=== PATIENT | female | born 2005 | race Two or more races ===

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

== ENCOUNTER 2024-11-29 14:34 | Emergency (ER) | payer MEDICAID, OTHER ==
[~2024-11-29] VITALS: Ht 154.9 cm; Wt 56.8 kg
[~2024-11-29 14:34] MED LIST: ALBU18HF12 IH
[2024-11-29 15:14] LABS: APPEARANCE,URINE CLEAR (CLEAR); BILIRUBIN,URINE NEGATIVE (NEGATIVE); COLOR,URINE LIGHT YELLOW (YELLOW); GLUCOSE, URINE (UA) NEGATIVE (NEGATIVE); KETONES,URINE NEGATIVE (NEGATIVE); LEUKOCYTE ESTERASE ,URINE MODERATE (NEGATIVE); OCCULT BLOOD,URINE NEGATIVE (NEGATIVE); PROTEIN,URINE NEGATIVE (NEGATIVE); SPECIFIC GRAVITIY, URINE 1.016 (1.003-1.030); UROBILINOGEN,URINE <=1.0 mg/dL (<=1.0)
[2024-11-29 15:25] LABS: NITRATE,URINE POSITIVE (NEGATIVE)
[2024-11-29 15:26] LABS: RBC,URINE 0-2 /HPF (0-2); WBC,URINE 26-50 /HPF (0-5)
[2024-11-29 15:27] LABS: BACTERIA,URINE Many /HPF (None Seen); SQUAMOUS EPITHELIAL CELL,UR Few /LPF (None Seen)
[2024-11-29] MEDS ORDERED: CEPH-558 PO (16:14)
[2024-11-29 16:20] VITALS: BP 101/69; PULSE 62; RESP 18; TEMP 98.6; O2SAT 99
[2024-11-29] MEDS: CEPHALEXIN MONOHYDRATE 500 MG CAPSULE PO ONE (16:32)
== END 2024-11-29 16:37 | disposition home or self-care (01) ==
LOC: EMS 14:34
DX: O23.41 Unspecified infection of urinary tract in pregnancy, first trimester (principal); O99.511 Diseases of the respiratory system complicating pregnancy, first trimester; J45.909 Unspecified asthma, uncomplicated; Z79.899 Other long term (current) drug therapy; Z3A.11 11 weeks gestation of pregnancy
CPT/HCPCS: 81001; 84703; 87077; 87086; 87186; 99283

== ENCOUNTER → 2025-03-20 | Emergency (ER) | payer MEDICAID, OTHER ==
[~2025-03-20] VITALS: Ht 154.9 cm; Wt 61.4 kg
[~2025-03-20] MED LIST changes: +CEPH-558 PO
[2025-03-20 20:23] LABS: APPEARANCE,URINE CLEAR (CLEAR); GLUCOSE, URINE (UA) NEGATIVE (NEGATIVE); LEUKOCYTE ESTERASE ,URINE NEGATIVE (NEGATIVE); NITRATE,URINE NEGATIVE (NEGATIVE); OCCULT BLOOD,URINE NEGATIVE (NEGATIVE); SPECIFIC GRAVITIY, URINE 1.011 (1.003-1.030)
[2025-03-20 21:07] LABS: PLATELET COUNT (AUTO) 207 K/uL (150-450); RED BLOOD CELL COUNT(AUTO) 3.72 MIL/uL (4.00-5.20); RED CELL DISTRIBUTION WIDTH 14.0 % (11.5-14.5); WHITE BLOOD COUNT (AUTO) 9.6 K/uL (4.5-11.0)
[2025-03-20 21:24] LABS: CALCIUM, TOTAL 8.2 mg/dL (8.8-10.5); CREATININE 0.42 mg/dL (0.60-1.30); GLOMERULAR FILTR. RATE CALC > 60 mL/min (>60); GLUCOSE,RANDOM 92 mg/dL (70-110); SODIUM SERUM 140 mmol/L (136-145); UREA NITROGEN, BLOOD 4 mg/dL (7-18)
[2025-03-20 21:30] LABS: ASPARTATE AMINOTRANSFERASE 18 U/L (15-37); TOTAL PROTEIN, SERUM 6.3 g/dL (6.4-8.2)
[2025-03-20 22:09] LABS: HCG,QUANTITATIVE 11177 mIU/mL (0-6)
[2025-03-20] MEDS: POTASSIUM CHLORIDE 20 MEQ ER TABLET PO ONE (22:12)
[2025-03-20 22:13] VITALS: BP 108/68; PULSE 75; RESP 16; TEMP 97.9; O2SAT 98
== END | disposition still patient (30) ==
LOC: EMS 19:37
DX: O26.893 Other specified pregnancy related conditions, third trimester (principal); O99.513 Diseases of the respiratory system complicating pregnancy, third trimester; J45.909 Unspecified asthma, uncomplicated; N89.8 Other specified noninflammatory disorders of vagina; Z79.899 Other long term (current) drug therapy; Z3A.28 28 weeks gestation of pregnancy
CPT/HCPCS: 76805; 80053; 81003; 84702; 85025; 86901; 99284